=== PATIENT | male | born 1980 | race Caucasian/White ===

== ENCOUNTER 2022-09-09 11:43 | Emergency (ER) | payer OTHER, SELFPAY ==
[2022-09-09] VITALS (7 sets, daily range): BP systolic 123–141; BP diastolic 84–100; PULSE 59–87; RESP 16–24; TEMP 36.8; O2SAT 91–98
--- NOTE | 2022-09-09 11:30 | RT.EKG_ITS ---
APPROVED REPORT Exam: Resting ECG Reason for Exam: svt Patient Location: E HR:81 bpm ECG Measurements Heart Rate 81 AXIS AL 171 P 53 QRSd 83 QRS 6 QT 380 T 20 QTc 441 Conclusion Sinus rhythm...normal P axis, V-rate 60- 99 Narrow complex normal sinus rhythm at a rate of 81. Normal axis. Intervals within normal limits. N o ST segment abnormalities. No T wave inversions. No prior for comparison.
--- NOTE | 2022-09-09 11:45 | DI.RAD_ITS ---
Exam(s) XR PORTABLE CHEST AP EXAM: XR PORTABLE CHEST AP CLINICAL HISTORY: Chest pain TECHNIQUE: 2D digital imaging was performed of the chest. Two images were obtained. AP views were obtained. COMPARISON: No exams were available for comparison FINDINGS: MEDIASTINUM: Normal. HEART: Normal. PULMONARY VASCULATURE: Normal. LUNGS: Clear. PLEURAL SPACE: No pleural effusion or pneumothorax. BONE:Within normal limits for the patient's age. OTHER FINDINGS:Normal. IMPRESSION: No acute pulmonary findings. DATA REPOSITORY: RADIATION DOSE DELIVERED:
--- NOTE | 2022-09-09 11:50 | ED.GENADUL_ITS ---
Discharge Plan Disposition Patient Disposition: Home Discharge Details Clinical Impression: SVT (supraventricular tachycardia), Myocardial injury Primary Care Provider: Brenda,Local ED Provider: Vin Palomino Home Meds and New Rx's Prescriptions: New metoprolol succinate 100 mg tablet extended release 24 hr 100 mg PO DAILY Qty: 30 0RF Continued citalopram 40 mg Tablet 40 mg PO DAILY losartan 100 mg Tablet 125 mg PO DAILY Discontinued metoprolol succinate 50 mg Tablet Extended Release 24 Hr 50 mg PO DAILY Discharge Instructions Additional Instructions: Please read all of the information that accompanies these instructions. You were seen in the emergency department for your chest pain. Your blood work but not your ECG showed signs of damage to your heart. You are advised to stay overnight at the hospital for trending of your blood work. You withdrew your consent for care. Cardiology at [facility] will call you for follow-up. Please increase your daily metoprolol from 50 mg to 100 mg. Please schedule an appointment with your primary care provider later this week. Please return to the emergency department if develop recurrent chest pain nausea or vomiting. If you develop chest pain trouble breathing or shortness of breath please return to the emergency department. Medical Decision Making This is an overall well-appearing normothermic and not tachycardic 41-year-old male with history of hypertension and SVT now back in sinus rhythm following prehospital conversion with adenosine. Given chest heaviness and PCP report of demand ischemia with abnormal stress ECG anticipate touching base with cardiology at [facility] to expedite follow-up if the patient does not make troponin. His chest pain has resolved and I feel that it is most likely secondary to his palpitations. He is not feeling short of breath to suggest PE. No tearing quality to his pain to suggest aortic dissection. No rash to chest to suggest zoster. No vomiting to suggest esophageal rupture. No cough to suggest pneumonia. No positional component to suggest pericarditis. Will obtain TSH magnesium and basic labs. Patient reports that he has cut down his drinking and drinks only several times per week. Given his elevated BMI history of hypertension and indiscretion with alcohol this certainly could precipitate SVT. We will provide a 500 cc fluid bolus and reassess. 1:04 PM Basic metabolic panel with normal creatinine. No anion gap. Very mild hypokalemia at 3.3 normal TSH. CBC with no anemia thrombocytopenia nor leukocytosis. Will page cardiology at [facility] for follow-up. 1:20 PM I spoke with Dr. Alves from [facility] cardiology. He will help to arrange outpatient follow-up. He advised increasing patient's metoprolol from 50 mg daily to 100 mg. 2:56 PM Patient's second troponin returned at 106. He still lacks chest pain. Will order repeat troponin at 4:30 PM to ensure that his troponin is not climbing. Will order the patient an additional 50mg metoprolol tartrate. 5:12 PM Patient's troponin climbed from 106 to 198. Patient remains without chest pain. We will touch base with cardiology at [facility]. 5:21 PM I spoke with Dr. Martinez cardiology specialist at [facility]. He advised trending troponins and discharging once patient's troponins plateaued and down trended. 5:33 PM I met with the patient and explained recommendation that he stay overnight for trending of troponins. He felt markedly improved. He did not want to stay. I counseled him on risk of further damage to his heart. He reported feeling improved. He had decision-making capacity. He withdrew his consent for care. 1. I explained the current situation and condition to the patient. 2. I explained the recommended treatment for this condition -hospitalization for trending of troponins 3. I explained the risk of not having the recommended treatment -worsening myocardial injury dysrhythmia or 4. The patient understands this information has no questions, and repeated back this information. 5. The patient states that they need to leave and will follow up with his primary care as needed 6. Mental status is lucid and the patient has decision-making capacity. 7. Patient is withdrawing his consent for care. Chronic conditions affecting the care of the patient: Elevated BMI History obtained from an outside historian: Paramedics External record review: [facility] EMR Diagnostic interpretations performed by me: [Per my independent interpretation chest x-ray shows:] No acute cardiopulmonary process Per my independent interpretation EKG shows: Narrow complex normal sinus rhythm at a rate of 81. Normal axis. Intervals within normal limits. No ST segment abnormalities. No T wave inversions. No prior for comparison. Medications: metoprolol tartrate Social determinants of health affecting disposition: N/A Management discussed with: Cardiology at [facility] Treatment/interventions considered: Hospitalization but deferred Response to therapies provided: No observed dysrhythmias in the ED HPI General Date/Time Provider Initiated Documentation: 09/09/22 11:49 . HPI Narrative: This is a 41-year-old male with a history of SVT, hypertension, elevated BMI, and reportedly abnormal stress test arriving via paramedics in the setting of ch est pain. Patient was driving this morning when he felt a tightness in his chest. He was found by paramedics to be in SVT with a heart rate of 207. Paramedics administered 6 mg of adenosine and he converted to normal sinus rhythm. He has twice received adenosine in the past. His chest pain was described as a heaviness and was associated with sweating. He has had no nauseousness nor vomiting. He is due to see cardiology and a referral has been placed with [facility]. He reports that he drinks regularly but not every day. He took all of his home medications this morning. No dizziness nor l ightheadedness. He has not been coughing nor vomiting. He denies any fevers and chills. He reports he has not yet been able to meet with a digital cartographer as he has been caring for his who reportedly has cancer. Related Data Home Medications Medication Instructions Recorded Confirmed citalopram 40 mg tablet 40 mg PO DAILY 09/09/22 09/09/22 losartan 100 mg tablet 125 mg PO DAILY 09/09/22 09/09/22 metoprolol succinate 100 mg 100 mg PO DAILY #30 tabs 09/09/22 tablet,extended release 24 hr Previous Rx's Medication Instructions Recorded metoprolol succinate 100 mg 100 mg PO DAILY #30 tabs 09/09/22 tablet,extended release 24 hr Allergies Allergy/AdvReac Type Severity Reaction Status Date / Time No Known Allergies Allergy Unverified 09/09/22 11:52 General Stated Complaint: Arrhythmia YULIET: 3 PFSH All Active Problems (Updated 09/09/22 @ 17:12 by Vin Palomino MD) SVT (supraventricular tachycardia) (Chronic) Myocardial injury (Acute) Social History Smoking/Tobacco Use Status: Current every day Tobacco Type: smokeless tobacco Smoking risk assessment performed?: Yes Alcohol Intake: current Alcohol Intake frequency: a few times a week Substance use type: does not use Do you feel safe at home: Yes Exam Narrative Exam Narrative: General: Well-appearing in no acute distress speaking in complete sentences. Head: Normocephalic, atraumatic. Eye: Extraocular eye movements intact. No conjunctival injection. No scleral icterus. Ear, nose, mouth, throat: Grossly normal inspection. Normal voice, handling secretions normally. Neck: Trachea midline. Cardiovascular: Well-perfused distal extremities. Regular rate and rhythm. No murmurs. Respiratory: Nonlabored respiration. Clear lungs bilaterally. Gastrointestinal: Nondistended abdomen. Soft nontender. Musculoskeletal: No edema. Moving all 4 extremities spontaneously. Skin: Normal for age and race, grossly normal temperature and turgor. No acute rash. Neurologic: Alert and appropriate, no apparent acute deficits. Psychiatric: Mood and manner are appropriate. Grooming and personal hygiene are appropriate. Course Vital Signs Vital signs: Vital Signs Pulse 86 09/09/22 11:44 Respiratory Rate 18 09/09/22 11:44 Blood Pressure 130/93 H 09/09/22 11:44 Pulse Oximetry 96 09/09/22 11:44 Pulse 86 09/09/22 11:44 Respiratory Rate 18 09/09/22 11:44 Blood Pressure 130/93 H 09/09/22 11:44 Pulse Oximetry 96 09/09/22 11:44 Oxygen Delivery Method Room Air 09/09/22 11:44 Oxygen Flow Rate 0 09/09/22 11:44
[2022-09-09 12:03] LABS: Abs Immature Grans 0.05 10^3/uL (0.0-0.06); Absolute Basophil Count 0.05 10^3/uL (0.0-0.2); Absolute Eosinophil Count 0.17 10^3/uL (0.0-0.7); Absolute Lymphocyte Count 1.27 10^3/uL (1.2-3.4); Absolute Monocyte Count 0.83 10^3/uL (0.1-0.8); Absolute Neutrophil Count 6.28 10^3/uL (1.2-6.7); Basophils % 0.6; HCT 46.6 % (40.0-50.0); HGB 16.3 g/dL (13.5-17.5); Immature Grans % 0.6; Lymphocytes % 14.7; MCH 30.7 pg (27.0-33.0); MCV 88 fL (80-95); MPV 8.9 fL (8.0-11.0); Monocytes % 9.6; Neutrophils % 72.5; Platelet Count 293 10^3/uL (130-400); RBC 5.31 10^6/uL (4.36-5.78); RDW 12.4 % (11.8-14.1); RDW-SD 40.1 fL; WBC 8.65 10^3/uL (4.4-10.8)
[2022-09-09] MEDS: Normal Saline 500 ML IV (12:21)
--- NOTE | 2022-09-09 12:26 | DI.VRAD_ITS ---
PROCEDURE INFORMATION: Exam: XR Chest Exam date and time: 09/09/2022 12:07 PM Age: 41 years old Clinical indication: Pain; Chest pressure TECHNIQUE: Imaging protocol: Radiologic exam of the chest. Views: 1 view. COMPARISON: No relevant prior studies available. FINDINGS: Lungs: Unremarkable. No consolidation. Pleural spaces: Unremarkable. No pleural effusion. No pneumothorax. Heart/Mediastinum: Unremarkable. No cardiomegaly. Bones/joints: Unremarkable for patient's age. IMPRESSION: No acute cardiopulmonary findings. Dictated and Authenticated by: Sharmila Cordoba MD. Ordering:JEAN CLAUDE Banuelos MD
[2022-09-09 12:39] LABS: BUN 16 mg/dL (7-18); CREATININE 1.1 mg/dL (0.70-1.30); Calcium 8.9 mg/dL (8.5-10.1); Chloride 105 mmol/L (98-107); Estimated GFR 85.42 (mL/min/1.73m2); Glucose 132 mg/dL (74-106); Magnesium 1.8 mg/dL (1.8-2.4); Potassium 3.3 mmol/L (3.5-5.1); Sodium 140 mmol/L (136-145); TSH (W/Ref FT4) 0.74 uIU/mL (0.36-3.74); Troponin I < 50 ng/L (<or=60)
[2022-09-09 14:53] LABS: Troponin I 106 ng/L (<or=60)
[2022-09-09] MEDS: Metoprolol 50 MG TAB PO (15:45)
[2022-09-09 17:06] LABS: Troponin I 198 ng/L (<or=60)
[2022-09-09] MEDS: Aspirin 325 MG TAB PO (18:02)
== END 2022-09-09 18:12 | disposition home or self-care (01) ==
PROVIDERS: Emergency Provider Emergency Medicine
DX: I47.1 Supraventricular tachycardia (principal); I5A Non-ischemic myocardial injury (non-traumatic); I10 Essential (primary) hypertension; F17.290 Nicotine dependence, other tobacco product, uncomplicated; R07.89 Other chest pain
CPT/HCPCS: 51702; 80048; 93005; 99284; 71045; 83735; 84443; 84484; 85025; 93010; 99283